=== PATIENT | male | born 1970 | race Caucasian/White ===

== ENCOUNTER 2018-01-26 00:44 | Emergency (ER) | payer SELFPAY ==
[~2018-01-26] VITALS: Ht 162.6 cm; Wt 69.4 kg
--- NOTE | 2018-01-26 00:45 | NUR ---
47 YO MALE BB SELF. PATIENT IS ALERT AND ORIENTED, AMBULATED TO ER BED WITH STEADY GAIT. PATIENT C/O ETOH INTOXICATION, PATIENT GOWNED,PLACED ON SE[employer]ET[employer]IST. AWAITING ORDER FROM PROVIDER
[2018-01-26 01:20] LABS: BASOPHILS % (AUTO) 0.3 % (0.0-2.0); EOSINOPHILS % (AUTO) 1.9 % (0.0-6.0); HEMATOCRIT 43 % (39-51); HEMOGLOBIN 14.4 g/dL (13.5-17.5); LYMPHOCYTES # (AUTO) 2.8 /CMM (0.8-4.8); LYMPHOCYTES % (AUTO) 37.4 % (20.0-44.0); MEAN CORPUSCULAR HGB CONC 34 g/dl (31.0-36.0); MEAN CORPUSCULAR VOLUME 93 fL (80-96); MONOCYTES # (AUTO) 0.2 /CMM (0.1-1.30); MONOCYTES % (AUTO) 3.3 % (2.0-12.0); NEUTROPHILS # (AUTO) 4.3 /CMM (1.8-8.9); NEUTROPHILS % (AUTO) 57.1 % (43.0-81.0); PLATELET COUNT (AUTO) 522 /CMM (150-450); RDW COEFFICIENT OF VARIATION 15.2 (11.5-15.0); RED BLOOD CELL COUNT(AUTO) 4.63 MIL/uL (4.5-6.0); WHITE BLOOD COUNT (AUTO) 7.5 K/uL (4.3-11.0)
[2018-01-26 01:22] LABS: APPEARANCE,URINE CLEAR (CLEAR); BILIRUBIN,URINE NEGATIVE (NEGATIVE); BLOOD, URINE NEGATIVE Ery/uL (NEGATIVE); COLOR,URINE YELLOW (YELLOW); KETONES,URINE NEGATIVE (NEGATIVE); LEUKOCYTE ESTERASE ,URINE NEGATIVE (NEGATIVE); NITRITE, URINE NEGATIVE (NEGATIVE); PROTEIN,URINE NEGATIVE (NEGATIVE); UGLUCOSE NEGATIVE (NEGATIVE); UROBILINOGEN,URINE 0.2 EU/dL (0.2)
[2018-01-26 01:40] LABS: ALBUMIN 4.3 g/dL (3.4-5.0); BILIRUBIN,TOTAL 0.2 mg/dL (0.2-1.0); CALCIUM, SERUM 8.8 mg/dL (8.5-10.1); CREATININE 0.3 mg/dL (0.6-1.3); TOTAL PROTEIN, SERUM 9.4 g/dL (6.4-8.2)
--- NOTE | 2018-01-26 02:38 | NUR ---
VITAL SIGNS UPDATED.
--- NOTE | 2018-01-26 06:10 | NUR ---
PATIENT AMBULATED WITH STEADY GAIT. NOTIFIED
--- NOTE | 2018-01-26 06:11 | NUR ---
CALLED PT SISTER, JUDITH, . UNABLE TO REACH JUDITH/ LEAVE .
--- NOTE | 2018-01-26 07:30 | NUR ---
RECEIVED REPORT FOR JULIAN.
[2018-01-26 10:12] VITALS: BP 126/84
--- NOTE | 2018-01-26 10:14 | NUR ---
Patient ambulating with steady gait at this time. Denies HI/SI at this time. Vitals stable. MD informed. Patient discharged to home in stable condition. Written and verbal after care instructions given. Patient verbalizes understanding of instruction.
== END 2018-01-26 10:13 | disposition home or self-care (01) ==
LOC: ER 00:46
DX: F32.9 Major depressive disorder, single episode, unspecified (principal); F10.129 Alcohol abuse with intoxication, unspecified; R45.851 Suicidal ideations; E11.9 Type 2 diabetes mellitus without complications; Z60.2 Problems related to living alone
CPT/HCPCS: 36415; 80048-TC; 80076-TC; 80305; 81000-TC; 85025-TC; A4606; G0480; Z7610